=== PATIENT | male | born 1970 | race Caucasian/White ===

== ENCOUNTER 2018-10-21 23:14 | Observation (INO) ==
[2018-10-21] MEDS ORDERED: ASPIRIN ONE (23:27)
[2018-10-21] MEDS ORDERED: ASPIRIN PO ONE (23:32)
[2018-10-21 23:35] LABS: BASO# 0.05 X1000 (0.0-0.2); BASO% 0.8 % (0.0-0.8); EOS# 0.35 X1000 (0.0-0.7); EOS% 5.6 % (0.0-10.0); HEMATOCRIT 41.1 % (42.0-52.0); HEMOGLOBIN 13.5 g/dL (14.0-18.0); IMM GRAN# 0.05 X1000 (0.0-0.04); IMM GRAN% 0.8 % (0.0-0.5); LYMPH# 2.27 X1000 (1.2-3.4); LYMPH% 36.4 % (20.5-51.1); MCHC 32.8 g/dL (33-37); MCV 88.4 FL (81-99); MONO# 0.76 X1000 (0.11-0.59); MONO% 12.2 % (1.7-9.3); MPV 9.6 FL (7.4-10.4); NEUT# 2.75 X1000 (1.4-6.5); NEUT% 44.2 % (42.2-75.2); PLT 306 X1000 (130-400); RBC 4.65 XMIL (4.7-6.1); RDW 13.8 % (11.5-14.5); WBC 6.23 X1000 (4.8-10.8)
[2018-10-21] MEDS ORDERED: NITROGLYCERIN TOP ONE (23:39)
--- NOTE | 2018-10-21 23:44 | PROVIDER DOCUMENTATION ---
HPI-Chest Pain - General Chief Complaint: Chest Pain Stated Complaint: CHEST PAIN Time Seen by Provider: 10/21/18 23:26 Source: patient Allergies/Adverse Reactions: Patient Allergies Allergy/AdvReac Type Severity Reaction Status Date / Time No Known Allergies Allergy Verified 10/28/15 14:42 Home Medications: Home Medication List Medication Instructions Recorded Confirmed Last Taken Type Canagliflozin [Invokana] 100 mg PO DAILY 09/04/14 10/28/15 10/28/15 07:00 History Lamotrigine 25 mg PO DAILY 09/04/14 10/28/15 10/28/15 06:00 History Simvastatin 20 mg PO DAILY 09/04/14 10/28/15 10/28/15 06:00 History Hydrocodone/APAP 10 mg/325 mg 1 each PO Q4H PRN PRN #15 tablet 09/05/14 10/28/15 Unknown Rx [Petaluma-10] Empagliflozin [Jardiance] 10 mg PO DAILY 10/28/15 10/28/15 10/28/15 07:00 History Hydrocodone/Acetaminophen [Petaluma 1 each PO Q4-6H PRN PRN #20 tablet 10/28/15 Unknown Rx 5-325 Tablet] Lisinopril/Hydrochlorothiazide 1 each PO DAILY 10/28/15 10/28/15 10/28/15 07:00 History [Lisinopril-Hctz 10-12.5 mg Tab] Montelukast Sodium [Singulair] 10 mg PO DAILY 10/28/15 10/28/15 10/28/15 07:00 History - History of Present Illness-CP Nature of Presenting Problem: Patient is a 48 year old white male with history of diabetes, hyperlipidemia,and HTN who presents with 3/10 left sided dull chest pain,tingling in left arm, and elevated blood pressure since 9pm tonight while driving home from football game. Followed by Dr. Espino. Location: reports: other (left sided chest) Severity in ED: mild, moderate Onset/Duration: 1-3 hours ago Timing: still present, improving Associated Symptoms: reports: dizziness. denies: diaphoresis, fever/chills, nausea, vomiting Nitro Today/Relief: no nitro taken today Prior Chest Pain/Cardiac Workup: reports: no prior cardiac workup Similar Symptoms Previously?: No Recently Seen Here or By Another Healthcare Provider: No Review of Systems - Adult - REVIEW OF SYSTEMS - ADULT Constitutional: denies: chills, fever Eyes: reports: no symptoms reported Ears, Nose, Mouth & Throat: reports: no symptoms reported Cardiovascular: reports: see HPI, chest pain Respiratory: reports: no symptoms reported Gastrointestinal: reports: hematemesis Genitourinary: reports: no symptoms reported Past History - Adult - PAST MEDICAL HISTORY-ADULT Review of Records: reports: Old Records Reviewed, Nursing Assessment Review, Medications Reviewed, Social history reviewed & non-contributory. Major Childhood Illnesses: reports: denies history Cardiovascular: reports: HTN, hyperlipidemia Respiratory: reports: denies history Gastrointestinal: reports: denies history Genitourinary: reports: denies history Musculoskeletal: reports: denies history Neurological: reports: Seizures/Epilepsy Endocrine/Immune: reports: Diabetes - PRIOR SURGERIES/PROCEDURES Surgical/Procedure History: reports: appendectomy - IMMUNIZATION STATUS Childhood Immunizations: See Nurse Assessment Flu Vaccine: See Nurse Assessment - FAMILY HISTORY Family History: reviewed, not pertinent - SOCIAL HISTORY Smoking: denies Substance Use: denies Alcohol Use Frequency: occasionally Living Situation: family Physical Exam-General - CONSTITUTIONAL General Appearance: alert, no apparent distress, other (nondiaphoretic) - EYES Eyes: other (clear) - HEAD, EARS, NOSE, MOUTH & THROAT HENMT: normocephalic/atraumatic, moist mucous membranes - NECK Neck: non-tender, full range of motion, supple - RESPIRATORY Respiratory: lungs clear - CARDIOVASCULAR Cardiovascular: regular rate, rhythm - GASTROINTESTINAL (ABDOMEN) Abdominal Exam: normal bowel sounds, non tender, soft - LYMPHATIC Lymphatic: no adenopathy - MUSCULOSKELETAL Back Exam: normal inspection, no CVA tenderness Extremity: normal range of motion, non-tender Peripheral Pulses: radial (R): 2+, radial (L): 2+ - SKIN Integumentary: normal color, normal turgor, warm/dry - NEUROLOGIC Neurologic: grossly normal - PSYCHIATRIC Psych/Mental Status: oriented x 3, anxious - HEART Score HEART Score: History: Moderately Suspicious HEART Score: ECG: Normal HEART Score: Age: 45-65 Years HEART Score: Risk Factors for Atherosclerotic Disease: > or = 3 Risk Factors or History of Atherosclerotic Disease HEART Score: Troponin: < or = Normal Limit Total HEART Score:: 4 Progress - PLAN OF CARE/RESULTS Progress/Plan/Lab Results: Vital Signs - 8 hr 10/21/18 23:16 Temperature 97.6 F Pulse Rate 81 Respiratory Rate 20 Blood Pressure 173/92 O2 Sat by Pulse Oximetry 97 Laboratory Results - last 24 hr 10/21/18 10/21/18 10/21/18 23:26 23:26 23:26 WBC 6.23 RBC 4.65 L Hgb 13.5 L Hct 41.1 L MCV 88.4 MCH 29.0 MCHC 32.8 L RDW Std Deviation 13.8 Plt Count 306 MPV 9.6 Immature Gran % (Auto) 0.8 H Neut % (Auto) 44.2 Lymph % (Auto) 36.4 Hopkins % (Auto) 12.2 H Eos % (Auto) 5.6 Baso % (Auto) 0.8 Immature Gran # (Auto) 0.05 H Neut # (Auto) 2.75 Lymph # (Auto) 2.27 Hopkins # (Auto) 0.76 H Eos # (Auto) 0.35 Baso # (Auto) 0.05 D-Dimer, Quantitative Sodium 138 Potassium 4.0 Chloride 99 Carbon Dioxide 27 Anion Gap 12 BUN 15 Creatinine 1.0 Estimated GFR/1.73 m2 > 60 BUN/Creatinine Ratio 15 Glucose 276 H Calculated Osmolality 286 Calcium 9.2 Creatine Kinase 192 Troponin T < 0.010 10/21/18 23:26 WBC RBC Hgb Hct MCV MCH MCHC RDW Std Deviation Plt Count MPV Immature Gran % (Auto) Neut % (Auto) Lymph % (Auto) Hopkins % (Auto) Eos % (Auto) Baso % (Auto) Immature Gran # (Auto) Neut # (Auto) Lymph # (Auto) Hopkins # (Auto) Eos # (Auto) Baso # (Auto) D-Dimer, Quantitative < 0.27 Sodium Potassium Chloride Carbon Dioxide Anion Gap BUN Creatinine Estimated GFR/1.73 m2 BUN/Creatinine Ratio Glucose Calculated Osmolality Calcium Creatine Kinase Troponin T Orders Category Date Time Status Cardiac Monitoring DIRECTED Care 10/21/18 23:27 Active CHEST-2 VIEWS [RAD] Stat Exams 10/21/18 23:28 Ordered BMP [BASIC METABOLIC PANEL] [CHEM] Stat Lab 10/21/18 23:26 Completed CBC WITH ELECTRONIC DIFF [HEME] Stat Lab 10/21/18 23:26 Completed CK PROFILE [SP CHEM] Stat Lab 10/21/18 23:26 Completed D-DIMER [COAG] Stat Lab 10/21/18 23:26 Completed TROPONIN T Stat Lab 10/21/18 23:26 Completed Aspirin Med 10/21/18 23:27 Discontinued 324 mg .ROUTE .STK-MED ONE Aspirin Med 10/21/18 23:32 Discontinued 324 mg PO NOW ONE Nitroglycerin Med 10/21/18 23:39 Discontinued 0.5 inch TOP NOW ONE EKG [EKG] Stat Ther 10/21/18 23:28 Ordered Result Diagrams: 10/21/18 23:26 10/21/18 23:26 - XRAY 1 XRAY Study: Chest XRAY Interpretation: NAD - CONSULTS/PCP/HOSPITALIST Notification #1 *Consult/PCP/Hospitalist*: Dr. Espino Time Discussed: 00:15 Consult Disposition: Admit Departure - Departure Date of Disposition Decision: 10/22/18 Time of Disposition Decision: 00:16 DIAGNOSIS: Chest pain Qualifiers: Chest pain type: unspecified Qualified Code(s): R07.9 - Chest pain, unspecified [facility]: Emergent Condition: Stable Referrals and Follow-Ups: Lars Espino MD [Primary Care Provider] - - Critical Care Note This patient required my direct & personal management of CC.: No Attestation - Physician/ DENISHA Attestation Patient care was provided by Advanced Practice Provider:: No The physician spent face to face time with patient:: Yes Advanced Practice Provider documentation review:: Supervising physician onsite and consulted in the evaluation and care of this patient. The physician did have a face to face encounter with the patient.
[2018-10-22 00:06] LABS: AGAP 12; BUN 15 mg/dL (8-22); CALCIUM 9.2 mg/dL (8.8-10.2); CHLORIDE 99 mmol/L (98-107); CK PROFILE 192 U/L (24-204); COSMO 286; ESTIMATED GFR > 60; GLUCOSE 276 mg/dL (70-104); SODIUM 138 mmol/L (136-145); TCO2 27 mmol/L (25-35)
[2018-10-22] MEDS ORDERED: ZOFRAN IV PRN (00:22)
[2018-10-22] MEDS ORDERED: MORPHINE IV PRN (02:01)
[2018-10-22] MEDS ORDERED: PNEUMOVAX 23 IM ONE (03:00)
--- NOTE | 2018-10-22 07:52 | EKG Report ---
Test Performed on : 10/21/2018 11:24:45 PM Test Reason : pain Blood Pressure : / mmHG Vent. Rate : 080 BPM Atrial Rate : 080 BPM P-R Int : 154 ms QRS Dur : 096 ms QT Int : 372 ms P-R-T Axes : 056 025 023 degrees QTc Int : 429 ms Normal sinus rhythm. Normal ECG No previous ECGs available Unconfirmed Result
--- NOTE | 2018-10-22 07:55 | Diag Imaging Result Doc PS360 ---
CHEST-2 VIEWS - 10/21/2018 INDICATION: chest pain COMPARISON: 10/28/2015 FINDINGS: The lungs are normally expanded and clear. Heart size and mediastinal contours are normal. No pneumothorax or pleural effusion. IMPRESSION: Negative exam. Electronically signed by Rex Mcknight 10/22/2018 7:53 AM
[2018-10-22] MEDS ORDERED: PRINZIDE 10/12.5MG PO SCH (09:00)
--- NOTE | 2018-10-22 09:00 | EKG Report ---
Test Performed on : 10/22/2018 08:34:18 AM Test Reason : CHEST PAIN Blood Pressure : / mmHG Vent. Rate : 071 BPM Atrial Rate : 071 BPM P-R Int : 154 ms QRS Dur : 106 ms QT Int : 398 ms P-R-T Axes : 048 026 026 degrees QTc Int : 432 ms Normal sinus rhythm. Normal ECG When compared with ECG of 21-OCT-2018 23:24, (Unconfirmed) No significant change was found Confirmed by Steve Lopez MD ([id number]) on 11/05/2018 11:49:36 AM
[2018-10-22] MEDS: TRICOR PO SCH (10:51)
[2018-10-22] MEDS: PRINIVIL PO SCH (10:51)
[2018-10-22] MEDS: HYDROCHLOROTHIAZIDE PO SCH (10:51)
[2018-10-22] MEDS: LAMICTAL PO SCH ×2 (10:51→21:26)
[2018-10-22] MEDS: ABILIFY PO SCH (10:59)
--- NOTE | 2018-10-22 12:13 | EKG Report ---
Test Performed on : 10/22/2018 12:04:56 PM Test Reason : CHEST PAIN Blood Pressure : / mmHG Vent. Rate : 077 BPM Atrial Rate : 077 BPM P-R Int : 158 ms QRS Dur : 104 ms QT Int : 386 ms P-R-T Axes : 049 027 022 degrees QTc Int : 436 ms Normal sinus rhythm. Normal ECG When compared with ECG of 22-OCT-2018 08:34, (Unconfirmed) No significant change was found Confirmed by Steve Lopez MD ([id number]) on 11/05/2018 11:49:32 AM
[2018-10-22] MEDS ORDERED: TYLENOL PO PRN (13:11)
--- NOTE | 2018-10-22 14:55 | HISTORY AND PHYSICAL ---
PRIMARY CARE PROVIDER: Dr. Lars Espino PRODUCT TESTER FIBERGLASS: Dr. Jalen Peña CHIEF COMPLAINT: Chest pain. HISTORY OF PRESENT ILLNESS: Mr. Deluca is a 48-year-old gentleman who carries a past medical history for insulin-dependent diabetes mellitus with an insulin pump, he was diagnosed at the age of 32, hypertension, hyperlipidemia, numerous concussions secondary to football, fractured skull after doing a back flip in a pool, one seizure episode that they believe was related to his diabetes. He reported 2 days prior to his admission, he had some left arm pain with tingling that went away, and then Wednesday night around 9 p.m., he was leaving a football game, and he started to have a "dull" pain in his chest that radiated to the neck, in the left arm. Tingling and pain returned. Nothing made it better or worse. There was no associated shortness of breath. He did get lightheaded and diaphoretic. There were no palpitations, nausea or vomiting. He came to the ED to be evaluated. Two EKGs just showed normal sinus rhythm. He had 2 sets of negative cardiac enzymes. All other laboratory data is essentially unremarkable. But given his history of diabetes, hypertension, and hyperlipidemia, we will keep him over the weekend and set him up for a stress test on Wednesday as well as an echocardiogram. PAST MEDICAL HISTORY: 1. Insulin-dependent diabetes since the age of 32 with an insulin pump. 2. Hypertension. 3. Hyperlipidemia. 4. One seizure. 5. Four concussions secondary to football. 6. Fractured skull from doing a back flip at the pool. PAST SURGICAL HISTORY: 1. Appendectomy. 2. Back surgery last year for herniated L5-S1. SOCIAL HISTORY: He is . Employed. No alcohol, tobacco, or illicit drug use. Two children. FAMILY HISTORY: Positive for diabetes and colon cancer. REVIEW OF SYSTEMS: Twelve-point review of systems completely negative except for those mentioned in HPI. PHYSICAL EXAMINATION: VITAL SIGNS: Temperature is 97.7 degrees, heart rate 72, respirations 18, blood pressure 114/66, O2 is 98% on room air. GENERAL: Mr. Deluca is a pleasant 48-year-old male, sitting up in the bed, in no acute distress. HEENT: Atraumatic, normocephalic. PERRL. NECK: Supple. Trachea midline. CARDIOVASCULAR: S1, S2 appreciated. No murmurs, gallops, or rubs noted. RESPIRATORY: Lung sounds clear bilaterally. GI: Soft, nontender, nondistended. Positive bowel sounds in 4 quadrants. SKIN: Warm, dry, and intact. He does have an insulin pump to his right lower quadrant. NEUROLOGIC: No focal deficits noted. LABORATORY DATA: White count 6, hemoglobin and hematocrit 13 and 41. D-dimer 0.27. Sodium 138, potassium 4.4, BUN 15, creatinine 1, blood glucose 135. Three sets of cardiac enzymes have been negative. Two EKGs showed normal sinus rhythm. ASSESSMENT AND PLAN: 1. Chest pain rule out. The patient has had 3 sets of negative cardiac enzymes. We will keep him over the weekend, set him up for stress test and echocardiogram on Wednesday morning. Continue with p.r.n. medications for any chest pain. 2. Diabetes mellitus. We will keep him on sliding scale. The patient has been adjusting his insulin pump. We will check a hemoglobin A1c. 3. Hyperlipidemia. We will continue him on his statin and TriCor. 4. Hypertension. Continue home medications. 5. Further recommendation to follow physician evaluation, laboratory and diagnostic data. Dictated by BEV Hicks for Grace Samuels MD cc: MD Lars Ojeda MD
--- NOTE | 2018-10-22 15:35 | HISTORY AND PHYSICAL ---
ADDENDUM: I saw the patient [id number] and fully agree with the assessment and plan of nurse practitioner, Allyssa. This is a 45-year-old gentleman who presented to the emergency room with chest pain and has history of uncontrolled diabetes along with hypertension and dyslipidemia. We are going to admit him and monitor him here at the hospital. He will have his stress test done on Wednesday morning, after which he can be released if the test is negative. cc: Grace Samuels MD
[2018-10-22] MEDS ORDERED: LIPITOR PO SCH (21:00)
[2018-10-23 07:31] LABS: CHOLESTEROL 200 mg/dL (0-200); HDL 29 mg/dL (35-55); LDL 111 mg/dL; TRIGLYCERIDES 299 mg/dL (39-160); VLDL 60 mg/dL
[2018-10-23] MEDS: PRINIVIL PO SCH (10:53)
[2018-10-23] MEDS: LAMICTAL PO SCH (10:53)
[2018-10-23] MEDS: ASPIRIN PO SCH (10:53)
[2018-10-23] MEDS: HYDROCHLOROTHIAZIDE PO SCH (10:54)
[2018-10-23] MEDS: TRICOR PO SCH (10:54)
[2018-10-23] MEDS: ABILIFY PO SCH (11:03)
--- NOTE | 2018-10-23 11:35 | PROGRESS NOTE ---
DATE: 10/23/2018 SUBJECTIVE: The patient denies having any acute events this morning. OBJECTIVE: Vital Signs: Temperature 97.3 degrees, pulse 72 per minute, respiratory rate 16 per minute, blood pressure 125/76, pulse oximetry 98% on room air. General: The patient is alert and oriented x3. He does not appear to be in any acute distress. Cardiovascular System: First and second heart sounds are audible without any murmurs or gallops. Respiratory System: Bilateral lung air entry is good without rales and rhonchi. Gastrointestinal System: Abdomen is soft and nondistended. Normal bowel sounds at present. IMPRESSION: Chest pain in this 48-year-old gentleman who has several risk factors for heart disease including type 2 diabetes mellitus, hypertension, and dyslipidemia. We are going to keep him here at the hospital and get a stress test including echocardiogram done tomorrow morning. He will continue with routine medications and also take aspirin 325 orally once daily. I have increased his atorvastatin from 40 mg a day to 80 mg a day because of dyslipidemia. Further recommendations will be given as per outcome of these measures. cc: Grace Samuels MD
[2018-10-23] MEDS ORDERED: LIPITOR PO SCH (21:00)
[2018-10-24] MEDS: PRINIVIL PO SCH (08:46)
[2018-10-24] MEDS: LAMICTAL PO SCH ×2 (13:31→13:32)
[2018-10-24] MEDS: HYDROCHLOROTHIAZIDE PO SCH (13:31)
[2018-10-24] MEDS: ABILIFY PO SCH (13:31)
[2018-10-24] MEDS: ASPIRIN PO SCH (13:32)
[2018-10-24] MEDS: TRICOR PO SCH (13:32)
--- NOTE | 2018-10-24 15:07 | Diag Imaging Result Document ---
PROCEDURE NAME: MYOCARDIAL PERF SCAN, STR/REST - 10/22/2018 INDICATION: Chest pain. PROCEDURES PERFORMED: 1. Ruben protocol stress. 2. One-day stress rest myocardial perfusion imaging. FINDINGS: Ruben protocol stress: 1. Baseline EKG shows sinus rhythm. 2. Patient exercised for a total of 7 minutes and 22 seconds, achieving a peak heart rate of 157 which was 90% of age predicted max. He achieved 9.1 METS and mid stage 3 of the Ruben protocol. Exercise capacity was only 75% of age and sex predicted exercise capacity. 3. Appropriate blood response to exercise. 4. Test was terminated due to fatigue. 5. No anginal complaints occurred during the course of the study. 6. There was 0.[address] depression occurring, largely in the lateral leads, specifically V4, V5, and V6. No significant arrhythmias. Perfusion imaging results: 1. No evidence of abnormal extracardiac uptake. 2. TID ratio is 1.12 but on review of splash images, there does not appear to be any transient ischemic dilatation. 3. There is normal homogeneous uptake of radiotracer throughout the myocardial segments. No evidence of stress-related defects. 4. Normal ejection fraction of 68%. The end-diastolic volume is 97. End-systolic volume is 31. Normal wall motion. cc: Arsenio Sanches MD
[2018-10-24 15:22] VITALS: BP 125/65
--- NOTE | 2018-10-24 16:05 | ECHO REPORT ---
ORDER DATE: 10/24/2018 INDICATION: Chest pain. FINDINGS: 1. The right atrium appears normal in size at 2.8 cm. 2. Trace tricuspid regurgitation. 3. Normal RV size and systolic function. 4. No significant pulmonic insufficiency. 5. Normal left atrial size with a dimension of 3.2 cm. 6. No mitral valve prolapse. Trace mitral regurgitation. 7. Normal LV size, end-diastolic dimension of 5.1 cm. Normal wall thicknesses with a posterior and interventricular septal wall thickness 1.1 and 2 cm respectively. There appears to be a normal LV systolic function with an estimated EF in the 50% to 55% range. Wall motion analysis on this study is difficult, but I do not see any clear evidence of segmental abnormalities on this study. 8. Aortic valve opens well. It is trileaflet. There is no evidence of stenosis or insufficiency. 9. The aorta appears normal in visualized segments. 10. No pericardial effusion is identified. cc: Arsenio Sanches MD
--- NOTE | 2018-10-25 14:13 | DISCHARGE SUMMARY ---
ADMISSION DATE: 10/22/2018 DISCHARGE DATE: 10/24/2018 DISCHARGE DIAGNOSES: 1. Chest pain resolved. 2. Diabetes. 3. Hypertension. 4. High cholesterol. CONSULTATIONS: None. PROCEDURES: Cardiolite GXT. BRIEF HOSPITAL COURSE: Patient was admitted to the hospital due to chest pain. He was kept in the hospital secondary to his chronic risk factors. Thankfully, his chest pain is resolved. His enzymes were negative. His GXT was also negative. Therefore, he will be discharged home. DISPOSITION: Greater than 30 minutes was spent in total care. Discussed with patient that he needs to follow up outpatient in the office. He is to continue to follow his blood sugars at home. Further orders as needed. TIME SPENT: Greater than 30 minutes was spent in total care. No changes made on his chronic home medications, diet cc: Lars Espino MD MTDD
== END 2018-10-24 18:45 | disposition home or self-care (01) ==
LOC: P.ED 23:14 → P.MEDSURG 23:14 → SUATTDRO 10-22 01:32
PROVIDERS: ATTEND Family Medicine